=== PATIENT | female | born 1940 | race Caucasian/White ===

== ENCOUNTER 2023-04-17 10:21 | Emergency (ER) | payer OTHER ==
[~2023-04-17] VITALS: Ht 160 cm; Wt 84.4 kg
[2023-04-17 10:28] VITALS: BP_SYST 139; PULSE 68; RESP 16; TEMP 97.2; O2SAT 97
[2023-04-17] MEDS ORDERED: KETOROLAC TROMETHAMINE 30 MG VIAL IVP ONE (10:30)
[2023-04-17] MEDS ORDERED: NACL 0.9% 1,000 ML IV ONE (10:30)
[2023-04-17] MEDS ORDERED: APIX5TAB4 PO (10:42)
[2023-04-17] MEDS ORDERED: LEVO125C4 PO (10:46)
[2023-04-17] MEDS ORDERED: EMPA10TA PO (10:46)
[2023-04-17] MEDS ORDERED: VITD2000 PO (10:46)
[2023-04-17] MEDS ORDERED: GABA-529 PO (10:46)
[2023-04-17] MEDS ORDERED: CALC-1215 PO (10:46)
[2023-04-17] MEDS ORDERED: CYAN25004 PO (10:46)
[2023-04-17] MEDS ORDERED: ATOR20TA64 PO (10:46)
[2023-04-17] MEDS ORDERED: METF1000 PO (10:46)
[2023-04-17 11:13] LABS: BASOPHILS % (AUTO) 0.5 % (0.0-2.0); EOSINOPHILS # (AUTO) 0.5 K/uL (0.0-0.4); EOSINOPHILS % (AUTO) 5.3 % (0.0-4.0); HEMATOCRIT 41.9 % (36-48); HEMOGLOBIN 13.5 g/dL (12.0-16.0); LYMPHOCYTES # (AUTO) 3.7 K/uL (1.0-5.5); LYMPHOCYTES % (AUTO) 39.2 % (20.5-51.5); MEAN CORPUSCULAR HEMOGLOBIN 30 pg (27-31); MEAN CORPUSCULAR HGB CONC 32 % (32-36); MEAN CORPUSCULAR VOLUME 93 fL (79.0-98.0); MONOCYTES # (AUTO) 0.7 K/uL (0.0-1.0); MONOCYTES % (AUTO) 7.8 % (1.7-9.3); NEUTROPHILS # (AUTO) 4.5 K/uL (1.8-7.7); NEUTROPHILS % (AUTO) 47.2 % (40.0-70.0); PLATELET COUNT (AUTO) 240 K/uL (130-430); WHITE BLOOD COUNT (AUTO) 9.5 K/uL (4.8-10.8)
[2023-04-17 11:33] LABS: BILIRUBIN,URINE NEGATIVE (NEGATIVE); BLOOD, URINE NEGATIVE (NEGATIVE); CLARITY/URINE CLEAR (CLEAR); COLOR,URINE YELLOW (YELLOW); GLUCOSE,URINE 3+ (NEGATIVE); KETONES,URINE NEGATIVE (NEGATIVE); LEUKOCYTE ESTERASE ,URINE NEGATIVE (NEGATIVE); NITRITE, URINE NEGATIVE (NEGATIVE); PROTEIN URINE NEGATIVE (NEGATIVE); UROBILINOGEN,URINE 0.2 (0.2-1.0)
[2023-04-17 11:34] LABS: RBC,URINE 0-3 /HPF (0-3); WBC,URINE 0-3 /HPF (0-3)
[2023-04-17 11:35] LABS: BACTERIA,URINE FEW /HPF (None Seen); YEAST,URINE Rare /HPF (None Seen)
[2023-04-17 11:39] LABS: ANION GAP 9 (5-15); CALCIUM 8.8 mg/dL (8.4-11.0); CARBON DIOXIDE 27 mmol/L (23-29); CHLORIDE 107 mmol/L (98-107); CREATININE 0.61 mg/dL (0.55-1.30); GLUCOSE 168 mg/dL (74-106); POTASSIUM 4.7 mmol/L (3.5-5.1); SODIUM SERUM 143 mmol/L (136-145); UREA NITROGEN, BLOOD 19 mg/dL (8-21)
[2023-04-17 11:43] LABS: ALANINE AMINOTRANSFERASE 16 U/L (12-78); ALBUMIN 3.4 g/dL (3.4-4.8); ASPARTATE AMINOTRANSFERASE 16 U/L (10-37); LIPASE 254 U/L (73-393); TOTAL BILIRUBIN 0.8 mg/dL (0.0-1.0); TOTAL PROTEIN, SERUM 7.2 g/dL (6.4-8.3)
[2023-04-17] MEDS ORDERED: OMEP20TA20 PO (13:54)
[2023-04-17] MEDS ORDERED: ANT30 PO (13:54)
[2023-04-17 14:26] VITALS: BP_SYST 139; PULSE 68; RESP 16; TEMP 97.2; O2SAT 97
== END 2023-04-17 14:25 | disposition home or self-care (01) ==
LOC: SED 10:21
DX: R14.0 Abdominal distension (gaseous) (principal); R11.0 Nausea; Z88.0 Allergy status to penicillin; Z79.899 Other long term (current) drug therapy
CPT/HCPCS: 99285; 74176; 96374; 71045; 96361; 80053; 81000; 83690; 85025; 36415; 93005; 76376; J1885; J7030